=== PATIENT | male | born 1945 | race Hispanic/Latino ===

== ENCOUNTER 2018-05-29 11:00 | Day surgery (SDC) | payer OTHER ==
[2018-05-29 11:35] VITALS: BMI 23.1
[2018-05-29] MEDS ORDERED: Albuterol 0.083% Inhal Sol (2.5 mg/3 mL) UD INH STA (11:38)
[2018-05-29] MEDS ORDERED: Lidocaine PF 2% (5 ml) Inj (For Cardiac Arrhy) ONE (15:24)
[2018-05-29] MEDS ORDERED: Nitroglycerin 50mg in D5W 0 MG/0 ML BOTTLE IV ONE (15:25)
[2018-05-29] MEDS ORDERED: Iodixanol 320 MG/ML 100 ML BOTTLE IV ONE (15:25)
[2018-05-29] MEDS ORDERED: DiphenhydrAMINE 50 mg/ml Inj ONE (15:40)
[2018-05-29] MEDS ORDERED: Midazolam 2 MG/2 ML VIAL ONE (15:41)
[2018-05-29] MEDS ORDERED: Sodium Chloride 0.45% 1,000 ML IV SCH (17:15)
[2018-05-29 17:40] VITALS: TEMP 97.8
--- NOTE | 2018-05-29 18:54 | VASCULAR ---
Date of service: 05/29/2018 PROCEDURE: Ultrasound-guided paracentesis HISTORY: PARACENTESIS COMPARISON: TECHNIQUE: Sonography of the right lower cross performed. This revealed a small to moderate amount of non loculated ascites. A puncture site was selected the right lower quadrant area prepped and draped usual sterile fashion. 1 percent xylocaine was used anesthetize skin soft tissues. A 7 Italian paracentesis catheter was trocar in the peritoneal cavity and 1200 cc of clear straw-colored fluid aspirated. No labs were sent due to the recent paracenteses. FINDINGS: IMPRESSION: Ultrasound-guided paracentesis. 1200 cc of clear straw-colored fluid was aspirated. No labs were sent
--- NOTE | 2018-05-29 18:57 | VASCULAR ---
PROCEDURE: Transjugular intrahepatic portosystemic shunt CLINICAL HISTORY: Alcoholic cirrhosis. Recurrent ascites were required frequent paracentesis. Needs TIPS. PHYSICIAN(S): Drake Lee M.D. TECHNIQUE: The relative risks and indications for the procedure were explained to the patient's son and consent obtained. The patient was placed supine on the arteriogram table and the right neck prepped and draped in the usual sterile fashion. Conscious sedation and monitoring were provided throughout the procedure by a nurse. Antibiotics were given. Under direct ultrasound guidance, the right internal jugular vein was punctured with a micropuncture set. An angled Glidewire was advanced into the IVC. A 10 Gu[place] angled sheath was placed at the hepatic venous confluence. The middle hepatic vein was cannulated with a 5 Gu[place] MPA catheter. The catheter was advanced into a wedged position. A wedged hepatic venogram was performed. Through a sheath and over a support wire, a [place] needle was placed in the proximal right hepatic vein. 3 passes were required to into the right portal vein. A 0.035 angled Glidewire was advanced into the splenic vein. Exchange was made for a support guidewire. A portogram was performed. Inital portal vein pressure was 28 mm Hg. The parenchymal tract was dilated with an 8 mm balloon. The 10 [place] sheath was advanced into the right portal vein. A 10 mm Viatorr stent graft was deployed from the right portal vein to the right hepatic vein. It was dilated with 7 mmballoon. Completion portogram's were obtained. A final transhepatic portal gradient was obtained. The sheath was removed and hemostasis obtained. The patient tolerated the procedure well. FINDINGS: The wedged hepatic venogram was limited without opacification of the portal system. The middle hepatic vein is dilated.. The extrahepatic portal vein is patent. No large varices are appreciated. The TIPS shunt was created from the right portal vein to the middle hepatic vein. It is patent with brisk antegrade flow. The final transhepatic portal gradient is approximately 10-15 mm Hg IMPRESSION: 1. Successful TIPS placement from the middle hepatic vein to the right portal vein. A 10 mm Viatorr stent graft was placed and dilated with a 7 mm balloon 2. The final transhepatic portal gradient is approximately 10-15 mmHg
[2018-05-29 19:02] VITALS: BP 114/61; PULSE 71; RESP 18; O2SAT 95
== END 2018-05-29 19:30 | disposition short-term general hospital (02) ==
LOC: CATH 11:00 → ICU 18:20 → CATH 19:30
PROVIDERS: ATTEND Radiology Vascular & Interventional Radiology
DX: K70.31 Alcoholic cirrhosis of liver with ascites (principal)
CPT/HCPCS: 37182; 99153; C1725; C1760; C1769 ×3; C1876; J1200; J1644; J2250; J2405; J3010; J7030; Q9967